=== PATIENT | female | born 1935 | race Asian ===

== ENCOUNTER 2017-08-05 09:52 | Emergency (ER) | payer OTHER ==
[~2017-08-05] VITALS: Ht 157.5 cm; Wt 45.5 kg
[2017-08-05] MEDS ORDERED: LOSA25TA21 PO (09:58)
[2017-08-05 10:44] LABS: BASOPHILS % (AUTO) 0.4 % (0.0-2.0); EOSINOPHILS % (AUTO) 3.8 % (1.0-6.0); HEMATOCRIT 43.5 % (36-46); HEMOGLOBIN 14.7 g/dL (12.0-16.0); LYMPHOCYTES # (AUTO) 1.3 K/uL (1.0-4.8); LYMPHOCYTES % (AUTO) 23.4 % (22.0-44.0); MEAN CORPUSCULAR HEMOGLOBIN 30.4 pg (26.0-34.0); MEAN CORPUSCULAR HGB CONC 33.8 G/dL (31.0-37.0); MEAN CORPUSCULAR VOLUME 90 fL (80-100); MONOCYTES # (AUTO) 0.6 K/uL (0.1-1.0); MONOCYTES % (AUTO) 9.9 % (2.0-9.0); NEUTROPHILS # (AUTO) 3.6 K/uL (1.8-7.7); NEUTROPHILS % (AUTO) 62.5 % (40.0-70.0); PLATELET COUNT (AUTO) 137 K/uL (150-450); RED BLOOD CELL COUNT(AUTO) 4.85 MIL/uL (4.00-5.20); RED CELL DISTRIBUTION WIDTH 14.1 % (11.5-14.5); WHITE BLOOD COUNT (AUTO) 5.8 K/uL (4.5-11.0)
[2017-08-05 10:53] LABS: ANION GAP 5 mmol/L (8-16); CALCIUM, TOTAL 9.4 mg/dL (8.8-10.5); CARBON DIOXIDE 31 mmol/L (22-29); CHLORIDE 104 mmol/L (98-107); CREATININE 0.79 mg/dL (0.60-1.30); GLOMERULAR FILTR. RATE CALC > 60 mL/min (>60); POTASSIUM 3.6 mmol/L (3.5-5.1); SODIUM SERUM 140 mmol/L (136-145); UREA NITROGEN, BLOOD 12 mg/dL (7-18)
[2017-08-05 10:59] LABS: ALANINE AMINOTRANSFERASE 27 U/L (12-78); ASPARTATE AMINOTRANSFERASE 24 U/L (15-37); BILIRUBIN,TOTAL 0.6 mg/dL (0.1-1.0); TOTAL PROTEIN, SERUM 7.3 g/dL (6.4-8.2)
[2017-08-05] MEDS ORDERED: AmLODIPine BESYLATE 5 MG TABLET PO ONE (11:00)
[2017-08-05 11:13] LABS: APPEARANCE,URINE CLEAR (CLEAR); GLUCOSE, URINE (UA) NEGATIVE (NEGATIVE); KETONES,URINE NEGATIVE (NEGATIVE); LEUKOCYTE ESTERASE ,URINE NEGATIVE (NEGATIVE); OCCULT BLOOD,URINE NEGATIVE (NEGATIVE); PROTEIN,URINE NEGATIVE (NEGATIVE)
[2017-08-05 11:14] LABS: ADD UA MICROSCOPIC NO
[2017-08-05] MEDS ORDERED: CloNIDine HCL 0.1 MG TABLET PO ONE (13:15)
[2017-08-05 14:57] VITALS: BP 135/84
== END 2017-08-05 15:20 | disposition home or self-care (01) ==
LOC: EMS 09:54 → EEVIPCON 09:54 → EMS 15:20
DX: I10 Essential (primary) hypertension (principal); Z88.0 Allergy status to penicillin
CPT/HCPCS: 93005; 99285

== ENCOUNTER 2018-06-29 08:15 | Inpatient (IN) | payer OTHER ==
[~2018-06-29] VITALS: Ht 152.4 cm; Wt 86.4 kg
[~2018-06-29 08:15] MED LIST: LOSA25TA16 PO
[2018-06-29] MEDS ORDERED: AMLO-511 PO (08:21)
[2018-06-29] MEDS ORDERED: GUAIF10 PO (08:21)
[2018-06-29] MEDS ORDERED: ACET-784 PO (08:21)
[2018-06-29] MEDS: ACETAMINOPHEN 325 MG TABLET PO ONE ×2 (09:06→09:10)
[2018-06-29] MEDS ORDERED: ACETAMINOPHEN 650 MG/ISO-OSM 65 ML IV ONE (09:15)
[2018-06-29 09:33] LABS: BASOPHILS % (AUTO) 0.2 % (0.0-2.0); EOSINOPHILS % (AUTO) 0.2 % (1.0-6.0); HEMATOCRIT 44.4 % (36-46); HEMOGLOBIN 14.9 g/dL (12.0-16.0); LYMPHOCYTES # (AUTO) 0.9 K/uL (1.0-4.8); LYMPHOCYTES % (AUTO) 6.2 % (22.0-44.0); MEAN CORPUSCULAR HGB CONC 33.5 G/dL (31.0-37.0); MEAN CORPUSCULAR VOLUME 89 fL (80-100); MONOCYTES # (AUTO) 1.1 K/uL (0.1-1.0); MONOCYTES % (AUTO) 7.3 % (2.0-9.0); NEUTROPHILS # (AUTO) 12.5 K/uL (1.8-7.7); PLATELET COUNT (AUTO) 180 K/uL (150-450); RED BLOOD CELL COUNT(AUTO) 4.97 MIL/uL (4.00-5.20); RED CELL DISTRIBUTION WIDTH 13.7 % (11.5-14.5)
[2018-06-29 09:36] LABS: NEUTROPHILS % (AUTO) 86.1 % (40.0-70.0)
[2018-06-29 09:42] LABS: ANION GAP 4 mmol/L (8-16); CALCIUM, TOTAL 9.5 mg/dL (8.8-10.5); CARBON DIOXIDE 30 mmol/L (22-29); CHLORIDE 98 mmol/L (98-107); CREATININE 0.88 mg/dL (0.60-1.30); GLUCOSE,RANDOM 125 mg/dL (70-110); POTASSIUM 4.3 mmol/L (3.5-5.1); SODIUM SERUM 132 mmol/L (136-145); UREA NITROGEN, BLOOD 10 mg/dL (7-18)
[2018-06-29 09:43] LABS: GLOMERULAR FILTR. RATE CALC > 60 mL/min (>60)
[2018-06-29 09:54] LABS: PLATELET MORPHOLOGY COMMENT GIANT PLTS PRESENT
[2018-06-29 10:04] LABS: B-TYPE NATRIURETIC PEPTIDE 129 pg/mL (0-100)
[2018-06-29 10:07] LABS: ALANINE AMINOTRANSFERASE 37 U/L (12-78); ALBUMIN 3.2 g/dL (3.4-5.0); ALKALINE PHOSPHATASE 153 U/L (46-116); ASPARTATE AMINOTRANSFERASE 32 U/L (15-37); BILIRUBIN,TOTAL 0.9 mg/dL (0.1-1.0); CREATINE KINASE, TOTAL ONLY 135 U/L (26-192); TOTAL PROTEIN, SERUM 8.6 g/dL (6.4-8.2)
[2018-06-29 10:17] LABS: APPEARANCE,URINE CLEAR (CLEAR); BILIRUBIN,URINE NEGATIVE (NEGATIVE); GLUCOSE, URINE (UA) NEGATIVE (NEGATIVE); KETONES,URINE NEGATIVE (NEGATIVE); LEUKOCYTE ESTERASE ,URINE NEGATIVE (NEGATIVE); NITRATE,URINE NEGATIVE (NEGATIVE); OCCULT BLOOD,URINE NEGATIVE (NEGATIVE); PH,URINE 7.5 (5.0-8.0); PROTEIN,URINE POS 1+ (NEGATIVE)
[2018-06-29] MEDS ORDERED: ACETAMINOPHEN 325 MG TABLET PO PRN (12:15)
[2018-06-29] MEDS ORDERED: MAGNESIUM HYDROXIDE SUSPENSION 30 ML UDCUP PO PRN (12:15)
[2018-06-29] MEDS ORDERED: LEVOFLOXACIN 500 MG/D5% WATER 100 ML IV ONE (12:15)
[2018-06-29] MEDS ORDERED: SODIUM CHLORIDE 0.9% 1,000 ML IV ONE (12:30)
[2018-06-29] MEDS: AmLODIPine BESYLATE 5 MG TABLET PO SCH (13:01)
[2018-06-29] MEDS: CefTRIAXone SODIUM 1 GM in DEXTROSE 5%-WATER 10 ML IV SCH (14:21)
[2018-06-29 14:27] VITALS: BP 146/74
[2018-06-29] MEDS: GuaiFENesin/D-METHORPHAN [SUGAR-FREE] 200-20MG/10 ML SYRUP UDCUP PO PRN (16:09)
[2018-06-29] MEDS: HEPARIN SODIUM,PORCINE 5,000 UNITS/ML VIAL SQ SCH (16:48)
[2018-06-29 19:45] VITALS: BP 136/73
[2018-06-29] MEDS ORDERED: ACETAMINOPHEN 650 MG/20.3 ML SOLUTION UDCUP PO PRN (20:00)
[2018-06-29] MEDS: DOCUSATE SODIUM 100 MG CAPSULE PO SCH (20:51)
[2018-06-30] VITALS (7 sets, daily range): BP systolic 117–150; BP diastolic 61–86
[2018-06-30] MEDS: HEPARIN SODIUM,PORCINE 5,000 UNITS/ML VIAL SQ SCH ×4 (00:10→23:58)
[2018-06-30] MEDS: GuaiFENesin/D-METHORPHAN [SUGAR-FREE] 200-20MG/10 ML SYRUP UDCUP PO PRN ×3 (00:11→18:32)
[2018-06-30 07:00] LABS: BASOPHILS % (AUTO) 0.1 % (0.0-2.0); EOSINOPHILS % (AUTO) 0.4 % (1.0-6.0); HEMATOCRIT 38.1 % (36-46); HEMOGLOBIN 12.9 g/dL (12.0-16.0); LYMPHOCYTES # (AUTO) 0.9 K/uL (1.0-4.8); LYMPHOCYTES % (AUTO) 8.5 % (22.0-44.0); MEAN CORPUSCULAR HEMOGLOBIN 30.4 pg (26.0-34.0); MEAN CORPUSCULAR HGB CONC 33.8 G/dL (31.0-37.0); MEAN CORPUSCULAR VOLUME 90 fL (80-100); MONOCYTES # (AUTO) 1.1 K/uL (0.1-1.0); MONOCYTES % (AUTO) 9.9 % (2.0-9.0); NEUTROPHILS # (AUTO) 8.9 K/uL (1.8-7.7); NEUTROPHILS % (AUTO) 81.1 % (40.0-70.0); PLATELET COUNT (AUTO) 165 K/uL (150-450); RED BLOOD CELL COUNT(AUTO) 4.24 MIL/uL (4.00-5.20); RED CELL DISTRIBUTION WIDTH 13.5 % (11.5-14.5)
[2018-06-30] MEDS: DOCUSATE SODIUM 100 MG CAPSULE PO SCH ×2 (08:30→20:06)
[2018-06-30] MEDS: PANTOPRAZOLE SODIUM 40 MG DR TABLET PO SCH (08:30)
[2018-06-30] MEDS: AmLODIPine BESYLATE 5 MG TABLET PO SCH (08:30)
[2018-06-30] MEDS: ASPIRIN 81 MG CHEWABLE TABLET PO SCH (08:30)
[2018-06-30] MEDS ORDERED: SODIUM CHLORIDE 0.9% 500 ML IV ONE (08:40)
[2018-06-30] MEDS: AZITHROMYCIN 500 MG/NS 250 ML IV SCH (11:23)
[2018-06-30] MEDS: CefTRIAXone SODIUM 1 GM in DEXTROSE 5%-WATER 10 ML IV SCH (14:04)
[2018-07-01 04:35] VITALS: BP 128/68
[2018-07-01 06:35] LABS: HEMATOCRIT 35.6 % (36-46); MEAN CORPUSCULAR HEMOGLOBIN 30.3 pg (26.0-34.0); MEAN CORPUSCULAR HGB CONC 33.8 G/dL (31.0-37.0); MEAN CORPUSCULAR VOLUME 90 fL (80-100); PLATELET COUNT (AUTO) 192 K/uL (150-450); RED BLOOD CELL COUNT(AUTO) 3.97 MIL/uL (4.00-5.20); RED CELL DISTRIBUTION WIDTH 13.5 % (11.5-14.5)
[2018-07-01 06:38] LABS: ANION GAP 6 mmol/L (8-16); CALCIUM, TOTAL 8.5 mg/dL (8.8-10.5); CARBON DIOXIDE 30 mmol/L (22-29); CHLORIDE 103 mmol/L (98-107); CREATININE 0.74 mg/dL (0.60-1.30); GLUCOSE,RANDOM 104 mg/dL (70-110); POTASSIUM 3.3 mmol/L (3.5-5.1); SODIUM SERUM 139 mmol/L (136-145); UREA NITROGEN, BLOOD 8 mg/dL (7-18)
[2018-07-01 06:45] LABS: GLOMERULAR FILTR. RATE CALC > 60 mL/min (>60)
[2018-07-01 07:44] VITALS: BP 147/69
[2018-07-01] MEDS: AmLODIPine BESYLATE 5 MG TABLET PO SCH (08:28)
[2018-07-01] MEDS: GuaiFENesin/D-METHORPHAN [SUGAR-FREE] 200-20MG/10 ML SYRUP UDCUP PO PRN (08:28)
[2018-07-01] MEDS: PANTOPRAZOLE SODIUM 40 MG DR TABLET PO SCH (08:28)
[2018-07-01] MEDS: ASPIRIN 81 MG CHEWABLE TABLET PO SCH (08:28)
[2018-07-01] MEDS: HEPARIN SODIUM,PORCINE 5,000 UNITS/ML VIAL SQ SCH (08:29)
[2018-07-01] MEDS: DOCUSATE SODIUM 100 MG CAPSULE PO SCH (09:00)
[2018-07-01 09:59] LABS: BAND NEUTROPHILS % (MANUAL) 5 % (0-5); BASOPHILS % (MANUAL) 1 % (0-2); EOSINOPHILS % (MANUAL) 2 % (1-6); LYMPHOCYTES % (MANUAL) 17 % (22-44); MONOCYTES % (MANUAL) 15 % (2-9); MYELOCYTES % 3 % (0-0); SEGMENTED NEUTROPHILS % 57 % (40-70)
[2018-07-01] MEDS ORDERED: 0.9% SODIUM CHLORIDE 5 ML NEB SOLUTION NEB ONE ×2 (10:26→13:43)
[2018-07-01] MEDS: ALBUTEROL SULFATE 2.5 MG/0.5 ML NEB SOLUTION NEB PRN ×2 (10:28→13:44)
[2018-07-01] MEDS ORDERED: POTASSIUM CHLORIDE 10 MEQ ER TABLET PO ONE (10:30)
[2018-07-01] MEDS: AZITHROMYCIN 500 MG/NS 250 ML IV SCH (10:55)
[2018-07-01] MEDS ORDERED: POTASSIUM CHLORIDE 10% 40 MEQ/30 ML LIQUID UDCUP PO ONE (11:00)
[2018-07-01 12:02] VITALS: BP 105/57
[2018-07-01] MEDS: CefTRIAXone SODIUM 1 GM in DEXTROSE 5%-WATER 10 ML IV SCH (12:46)
== END 2018-07-01 14:13 | disposition home or self-care (01) | DRG 720 ==
LOC: EMS 08:16 → 4E 12:42 → 6N 17:46
PROVIDERS: ADMIT Internal Medicine; ATTEND Internal Medicine
DX: A41.9 Sepsis, unspecified organism (principal); J18.9 Pneumonia, unspecified organism; I10 Essential (primary) hypertension; Z79.899 Other long term (current) drug therapy
CPT/HCPCS: 83605; 87040; 93005; 94640; 96365; 96366; 96368; 99285; J0131; J0456; J0696; J1644; J1956; J7030; J7040; J7060

== ENCOUNTER 2019-09-15 10:27 | Emergency (ER) | payer SELFPAY ==
[~2019-09-15] VITALS: Ht 157.5 cm; Wt 50.0 kg
[~2019-09-15 10:27] MED LIST changes: +ACET-784 PO; +AMLO5TAB9 PO; +GUAIF10 PO; -LOSA25TA16 PO
[2019-09-15 10:32] VITALS: BP 130/89
[2019-09-15] MEDS ORDERED: D-ME236L5 PO (10:35)
[2019-09-15 12:15] LABS: BASOPHILS % (AUTO) 0.3 % (0.0-2.0); EOSINOPHILS % (AUTO) 0.3 % (1.0-6.0); HEMATOCRIT 44.1 % (36-46); HEMOGLOBIN 14.6 g/dL (12.0-16.0); LYMPHOCYTES # (AUTO) 1.3 K/uL (1.0-4.8); LYMPHOCYTES % (AUTO) 21.9 % (22.0-44.0); MEAN CORPUSCULAR HEMOGLOBIN 29.8 pg (26.0-34.0); MEAN CORPUSCULAR HGB CONC 33.1 G/dL (31.0-37.0); MEAN CORPUSCULAR VOLUME 90 fL (80-100); MONOCYTES # (AUTO) 0.7 K/uL (0.1-1.0); MONOCYTES % (AUTO) 12.1 % (2.0-9.0); NEUTROPHILS # (AUTO) 3.9 K/uL (1.8-7.7); NEUTROPHILS % (AUTO) 65.4 % (40.0-70.0); PLATELET COUNT (AUTO) 149 K/uL (150-450); RED BLOOD CELL COUNT(AUTO) 4.89 MIL/uL (4.00-5.20); RED CELL DISTRIBUTION WIDTH 14.3 % (11.5-14.5)
[2019-09-15 12:24] LABS: ANION GAP 6 mmol/L (8-16); CALCIUM, TOTAL 9.1 mg/dL (8.8-10.5); CARBON DIOXIDE 29 mmol/L (22-29); CHLORIDE 101 mmol/L (98-107); CREATININE 0.87 mg/dL (0.60-1.30); GLUCOSE,RANDOM 180 mg/dL (70-110); POTASSIUM 3.8 mmol/L (3.5-5.1); SODIUM SERUM 136 mmol/L (136-145); UREA NITROGEN, BLOOD 16 mg/dL (7-18)
[2019-09-15 12:25] LABS: GLOMERULAR FILTR. RATE CALC > 60 mL/min (>60)
[2019-09-15 12:30] LABS: ALANINE AMINOTRANSFERASE 23 U/L (12-78); ALBUMIN 3.8 g/dL (3.4-5.0); ALKALINE PHOSPHATASE 71 U/L (46-116); ASPARTATE AMINOTRANSFERASE 28 U/L (15-37); BILIRUBIN,TOTAL 0.6 mg/dL (0.1-1.0); TOTAL PROTEIN, SERUM 8.2 g/dL (6.4-8.2)
[2019-09-15 12:42] LABS: B-TYPE NATRIURETIC PEPTIDE 182 pg/mL (0-100)
[2019-09-15] MEDS ORDERED: CefTRIAXone SODIUM 1 GM/VIAL IM ONE (13:15)
[2019-09-15] MEDS ORDERED: LIDOCAINE/PF 1% 2 ML VIAL IM ONE (13:15)
== END 2019-09-15 14:17 | disposition home or self-care (01) ==
LOC: EMS 10:29
DX: J20.9 Acute bronchitis, unspecified (principal); J02.9 Acute pharyngitis, unspecified; R06.02 Shortness of breath; M54.9 Dorsalgia, unspecified; I10 Essential (primary) hypertension; Z79.899 Other long term (current) drug therapy
CPT/HCPCS: 36415; 71046; 80053; 83880; 84484; 85025; 93005; 96372; 99284; J0696; J3490

== ENCOUNTER 2019-09-20 22:22 | Emergency (ER) | payer SELFPAY ==
[~2019-09-20] VITALS: Ht 134.6 cm; Wt 54.5 kg
[~2019-09-20 22:22] MED LIST changes: -ACET-784 PO; +D-ME236L5 PO; -GUAIF10 PO
[2019-09-20] MEDS ORDERED: ADENOSINE 3 MG/ML 2 ML VIAL IVP ONE ×2 (22:45→23:15)
[2019-09-20 22:54] LABS: BASOPHILS % (AUTO) 0.5 % (0.0-2.0); EOSINOPHILS % (AUTO) 2.4 % (1.0-6.0); HEMATOCRIT 43.2 % (36-46); HEMOGLOBIN 14.4 g/dL (12.0-16.0); LYMPHOCYTES # (AUTO) 2.6 K/uL (1.0-4.8); LYMPHOCYTES % (AUTO) 44.4 % (22.0-44.0); MEAN CORPUSCULAR HEMOGLOBIN 29.8 pg (26.0-34.0); MEAN CORPUSCULAR HGB CONC 33.3 G/dL (31.0-37.0); MEAN CORPUSCULAR VOLUME 90 fL (80-100); MONOCYTES # (AUTO) 0.6 K/uL (0.1-1.0); NEUTROPHILS # (AUTO) 2.4 K/uL (1.8-7.7); NEUTROPHILS % (AUTO) 41.7 % (40.0-70.0); PLATELET COUNT (AUTO) 170 K/uL (150-450); RED BLOOD CELL COUNT(AUTO) 4.83 MIL/uL (4.00-5.20); RED CELL DISTRIBUTION WIDTH 13.8 % (11.5-14.5)
[2019-09-20] MEDS ORDERED: DILTIAZEM HCL 5 MG/ML 5 ML VIAL IVP ONE (23:00)
[2019-09-20] MEDS ORDERED: DILTIAZEM HCL 60 MG TABLET PO ONE (23:30)
[2019-09-20 23:40] LABS: ALBUMIN 4.2 g/dL (3.4-5.0); BILIRUBIN,TOTAL 0.5 mg/dL (0.1-1.0); CALCIUM, TOTAL 9.5 mg/dL (8.8-10.5); CREATININE 0.91 mg/dL (0.60-1.30); POTASSIUM 3.5 mmol/L (3.5-5.1); TOTAL PROTEIN, SERUM 8.7 g/dL (6.4-8.2)
[2019-09-21 02:08] VITALS: BP 126/51
== END 2019-09-21 03:02 | disposition home or self-care (01) ==
LOC: EMS 22:22
DX: I47.1 Supraventricular tachycardia (principal); I10 Essential (primary) hypertension
CPT/HCPCS: 36415; 71045; 80053; 83735; 84484; 85025; 93005; 96374; 96375; 99285; J0153; J3490

== ENCOUNTER 2024-07-04 18:49 | Emergency (ER) | payer MEDICARE, MEDICAID ==
[~2024-07-04] VITALS: Ht 152.4 cm; Wt 60.0 kg
[~2024-07-04 18:49] MED LIST changes: +ALEN70TA80 PO; +AMLO-257 PO; -AMLO5TAB9 PO; +AMOX-457 PO; +APIX2.5T PO; +BENZ-227 PO; -D-ME236L5 PO; +METO25 PO
[2024-07-04 19:00] VITALS: TEMP 98.4
[2024-07-04 21:00] VITALS: BP 158/92; PULSE 98; RESP 16; O2SAT 98
[2024-07-04] MEDS ORDERED: DIATRIZOATE MEGLU/SOD 660/100 MG/ML 120 ML BOTTLE GT ONE (23:30)
[2024-07-05] MEDS: IOHEXOL 240 MG/ML 50 ML VIAL PO ONE (00:32)
== END 2024-07-05 01:01 | disposition home or self-care (01) ==
LOC: EMS 18:49
DX: Z43.1 Encounter for attention to gastrostomy (principal); I10 Essential (primary) hypertension; Z98.890 Other specified postprocedural states; Z91.199 Patient's noncompliance with other medical treatment and regimen due to unspecified reason
CPT/HCPCS: 99283; 74018; Q9966